=== PATIENT | female | born 1990 | race Caucasian/White ===

== ENCOUNTER 2019-04-03 20:54 | Emergency (ER) | payer BC ==
[~2019-04-03] VITALS: Ht 160 cm; Wt 56.7 kg
[~2019-04-03 20:54] MED LIST: Augmentin 875-1 EACH PO; CYCL10 PO; IBUP600 PO; Macrobid 100 M100 MG PO; NAPR550 PO; Nasonex17 GM; Norco 5-325 Ta1 EACH PO; PSEU120ER PO; Prozac40 MG PO; Xanax0.5 MG PO
[2019-04-03] MEDS ORDERED: Mononessa1 EACH PO (21:03)
[2019-04-03] MEDS ORDERED: Prozac20 MG PO (21:03)
[2019-04-03] MEDS ORDERED: Flonase 0.05% N16 GM (21:40)
[2019-04-03] MEDS ORDERED: Augmentin 875-1 EACH PO (21:40)
== END 2019-04-03 21:45 | disposition home or self-care (01) ==
LOC: ER 20:54
DX: H66.92 Otitis media, unspecified, left ear (principal); H69.91 Unspecified Eustachian tube disorder, right ear; Z79.899 Other long term (current) drug therapy
CPT/HCPCS: 99282

== ENCOUNTER 2024-05-29 14:39 | Emergency (ER) | payer OTHER ==
[~2024-05-29] VITALS: Ht 160 cm; Wt 68.0 kg
[~2024-05-29 14:39] MED LIST changes: +Flonase 0.05% N16 GM; +Mononessa1 EACH PO; +Prozac20 MG PO
[2024-05-29 14:44] VITALS: BP 123/73
[2024-05-29] MEDS ORDERED: Prochlorperazine Maleate 5 MG Tab PO ONE (17:05)
[2024-05-29] MEDS ORDERED: Ketorolac Tromethamine 10 MG Tab PO ONE (17:05)
[2024-05-29] MEDS ORDERED: DiphenhydrAMINE HCL 25 MG Cap PO ONE (17:10)
== END 2024-05-29 17:37 | disposition home or self-care (01) ==
LOC: ER 14:39
DX: G44.209 Tension-type headache, unspecified, not intractable (principal); Z79.899 Other long term (current) drug therapy; G43.909 Migraine, unspecified, not intractable, without status migrainosus
CPT/HCPCS: 70450; 99283-25; A9270; Q0164